=== PATIENT | male | born 1930 | race Caucasian/White ===

== ENCOUNTER 2017-05-28 18:18 | Inpatient (IN) ==
[2017-05-28] MEDS ORDERED: Pantoprazole 40 MG VIAL IVP ONE ×3 (18:25→19:00)
--- NOTE | 2017-05-28 18:42 | Emergency Department Note ---
Disposition Clinical Impression: Upper GI bleed Disposition: Admitted As Inpatient Condition: Good Referrals: Haresh Salmon MD [Primary Care Provider] - Time of Disposition: 20:22 General Adult HPI - General Stated complaint: GI bleed Time Seen by Provider: 05/28/17 18:25 Source: patient, family, EMS Limitations: no limitations Nursing Notes Reviewed: Yes Vital Signs Reviewed: Yes - History of Present Illness HPI Narrative: Mr. Boswell is a very pleasant 87-year-old gentleman with a past medical history of hypertension, CKD, congestive heart failure and carotid artery stenosis who presents to the [facility] emergency department with a chief complaint of melena. He reports that he had a bout of dark colored stool this morning. He is a patient at the [facility] and was seen prior to arrival at the urgent care. Their workup there included a CBC which showed a H&H of 10.7 and 32.6 along with BUN of 60 and a creatinine of 2.08. patient was found to be occult blood positive at that time. Patient was given 40 mg IV Protonix. IV access was obtained and patient was subsequently transferred via ambulance to our emergency department for further evaluation. On arrival, he denies any other symptomatology such as abdominal pain, chest pain, shortness breath, palpitations, nausea, vomiting. He does state that he felt mildly lightheaded after his bloody bowel movement early this morning. He denies any [id number] NSAID abuse. No tobacco or alcohol abuse. His remote history of a GI bleed roughly 38 years ago. No history of recent endoscopies. No other complaints at this time. Pain Scale: 0 - Related Data Home Medications Medication Instructions Recorded Confirmed Amlodipine Besylate [Amlodipine 10 mg PO DAILY 05/28/17 05/28/17 Besylate] Clopidogrel [Plavix] 75 mg PO DAILY 05/28/17 05/28/17 Furosemide [Lasix] 20 mg PO DAILY 05/28/17 05/28/17 Lisinopril [Zestril] 20 mg PO DAILY 05/28/17 05/28/17 Tamsulosin [Flomax] 0.4 mg PO DAILY 05/28/17 05/28/17 Allergies Allergy/AdvReac Type Severity Reaction Status Date / Time Penicillins AdvReac Hives Verified 05/28/17 19:59 Review of Systems: Constitutional: No fever Vision: No blurred vision ENT: No rhinorrhea Respiratory: No cough Cardiovascular: No chest pain Allergic: No allergies : No blood in urine GI: See history of present illness Hematologic: No bruising Dermatologic: No skin rash Musculoskeletal: No pain in the extremities Neuro: No numbness of the extremities Past Medical History - Past Medical History Medical history: Reports: COPD, hypertension Psychiatric history: Reports: no psych history - Social History Smoking Status: Former smoker Alcohol use: Reports: none Drug use: Reports: none Physical Exam CONSTITUTIONAL: Alert and oriented X3 in no apparent distress HEAD: Normocephalic; atraumatic. EYES: Ocular movements grossly intact Oropharynx: pink/moist RESP: NRD without use of accessory musculature, CTA b/l with no wheezes/rales/ rhonchi CARD: Regular rhythm, without murmurs, rubs, or gallop ABD: grossly normal, soft, non-tender, no guarding/distention/rigidity SKIN: normal appearance, no pallor/diaphoresis,mottling,jaundice,cyanosis EXT: PT pulses 2+ and symmetrical; no lateralizing edema; no other lesions seen PSYCH: appropriate mood/affect - General Limitations: no limitations General appearance: alert, in no apparent distress Course Course Narrative: Patient was seen and examined at bedside upon arrival. Report was given per EMS. Vital signs were reviewed and were unremarkable. Workup performed at the [facility] urgent care was reviewed. Physical examination was unremarkable. Patient was found to be Hemoccult positive. There is no bright red blood or black colored stool within the rectal vault. Patient was given another 40 mg of IV Protonix. 500 mL bolus was given of IVF. Second IV was inserted. Repeat H&H, coags, type and screen and troponin were ordered. 12 lead EKG was ordered as well. Patient was made nothing by mouth. Patient appears comfortable and nontoxic at this time. 2010: 12-lead EKG demonstrates mild ST elevation in the inferior leads that were changed from previous. Troponin was negative and patient has no chest pain at this time. Repeat H&H shows mild drop in his glove and to 9.8. GI was consulted and case was discussed with Dr. Lundberg who will see patient tomorrow morning and had no further recommendations at this time. Hospitalist was then consulted and discussed case with Dr. Asif notes that the patient for hospital admission. Disposition was discussed with patient who understands and agrees to plan. Vital Signs Temperature 98.6 F 05/28/17 18:19 Pulse Rate 96 05/28/17 18:19 Respiratory Rate 18 05/28/17 18:19 Blood Pressure 135/88 05/28/17 18:19 O2 Sat by Pulse Oximetry 100 05/28/17 18:19 Temperature 98.6 F 05/28/17 18:19 Pulse Rate 97 05/28/17 20:49 Respiratory Rate 16 05/28/17 20:49 Blood Pressure 126/80 05/28/17 20:49 O2 Sat by Pulse Oximetry 99 05/28/17 20:49 Oxygen Delivery Oxygen Delivery Room Air Medical Decision Making - Medical Records Medical records reviewed: Yes I reviewed the patient's medical records. - Lab Data Lab results reviewed: Yes I reviewed the patient's lab results. Result diagrams: 05/28/17 18:43 Lab Results 05/28/17 05/28/17 05/28/17 Range/Units 18:40 18:40 18:43 Hgb 9.8 L (12.9-16.9) g/dL Hct 28.3 L (37.5-50.1) % PT 15.9 H (9.4-12.1) Seconds INR 1.5 APTT 26.8 (26.0-36.0) Seconds Troponin I (< 0.04) ng/mL Blood Type O POSITIVE Antibody Screen POSITIVE 05/28/17 Range/Units 18:43 Hgb (12.9-16.9) g/dL Hct (37.5-50.1) % PT (9.4-12.1) Seconds INR APTT (26.0-36.0) Seconds Troponin I < 0.03 (< 0.04) ng/mL Blood Type Antibody Screen - EKG Data EKG #1 EKG attestation: Yes I reviewed and interpreted this EKG. EKG results narrative: 05/28/17 1833: Heart rate 96, QRS 111, QTC 398. There is mild ST elevation noted inferior leads as well as ST depression seen in V4. These elevations and depressions were seen at a decreased distance performed on previous at the [facility] prior to arrival on 05/28/17 at 1715.
[2017-05-28 18:55] LABS: Hematocrit 28.3 % (37.5-50.1); Hemoglobin 9.8 g/dL (12.9-16.9)
[2017-05-28 19:00] LABS: INR 1.5; Prothrombin Time 15.9 Seconds (9.4-12.1)
[2017-05-28 19:03] LABS: Activated Partial Thrombo Time 26.8 Seconds (26.0-36.0)
[2017-05-28] MEDS ORDERED: 0.9 % Sodium Chloride 500 ML IVC ONE (19:46)
--- NOTE | 2017-05-28 21:35 | Emergency Department Note ---
Disposition Clinical Impression: Upper GI bleed Disposition: Admitted As Inpatient Condition: Good Referrals: Haresh Salmon MD [Primary Care Provider] - General Adult HPI - General Chief complaint: ED GI Bleed Stated complaint: GI bleed Time Seen by Provider: 05/28/17 18:25 Source: patient, family, EMS Limitations: no limitations Nursing Notes Reviewed: Yes Vital Signs Reviewed: Yes - History of Present Illness Pain Scale: 0 - Related Data Home Medications Medication Instructions Recorded Confirmed Amlodipine Besylate [Amlodipine 10 mg PO DAILY 05/28/17 05/28/17 Besylate] Clopidogrel [Plavix] 75 mg PO DAILY 05/28/17 05/28/17 Furosemide [Lasix] 20 mg PO DAILY 05/28/17 05/28/17 Lisinopril [Zestril] 20 mg PO DAILY 05/28/17 05/28/17 Tamsulosin [Flomax] 0.4 mg PO DAILY 05/28/17 05/28/17 Allergies Allergy/AdvReac Type Severity Reaction Status Date / Time Penicillins AdvReac Hives Verified 05/28/17 19:59 Past Medical History - Past Medical History Medical history: Reports: COPD, hypertension Psychiatric history: Reports: no psych history - Social History Smoking Status: Former smoker Alcohol use: Reports: none Drug use: Reports: none Physical Exam - General Limitations: no limitations General appearance: alert, in no apparent distress Course Vital Signs Temperature 98.6 F 05/28/17 18:19 Pulse Rate 96 05/28/17 18:19 Respiratory Rate 18 05/28/17 18:19 Blood Pressure 135/88 05/28/17 18:19 O2 Sat by Pulse Oximetry 100 05/28/17 18:19 Temperature 98.6 F 05/28/17 18:19 Pulse Rate 97 05/28/17 20:49 Respiratory Rate 16 05/28/17 20:49 Blood Pressure 126/80 05/28/17 20:49 O2 Sat by Pulse Oximetry 99 05/28/17 20:49 Oxygen Delivery Oxygen Delivery Room Air Medical Decision Making - Lab Data Result diagrams: 05/28/17 18:43 Lab Results 05/28/17 05/28/17 05/28/17 Range/Units 18:40 18:40 18:43 Hgb 9.8 L (12.9-16.9) g/dL Hct 28.3 L (37.5-50.1) % PT 15.9 H (9.4-12.1) Seconds INR 1.5 APTT 26.8 (26.0-36.0) Seconds Troponin I (< 0.04) ng/mL Blood Type O POSITIVE Antibody Screen POSITIVE 05/28/17 Range/Units 18:43 Hgb (12.9-16.9) g/dL Hct (37.5-50.1) % PT (9.4-12.1) Seconds INR APTT (26.0-36.0) Seconds Troponin I < 0.03 (< 0.04) ng/mL Blood Type Antibody Screen Attestation Statement - Attestation Attestation: I, Alfred Meadows, examined this patient and my medical decision-making was reviewed with the [employer] CONSULTANT/PA/Advanced Practice Nurse/Resident Physician. I agree with the documented findings, disposition and treatment plan as described except to the extent set forth below. 87-year-old male presents emergency Department with concerns of acute onset GI bleeding. Patient was initially evaluated at the [facility] who found mild anemia, melanotic stool. Patient is symptomatic with his anemia, lightheaded, short of breath with exertion. He does become nauseated with exertion. Patient denies chest pain or palpitations. On initial evaluation the emergency department the patient has an EKG which has mild ST elevation in lead [address] depression of the V4 however patient has no chest pain at this time, his symptoms have been increasing over the past few days and he has a negative initial troponin. Patient denies other recent trauma. He will be admitted to the hospitalist for further care and evaluation. The resident, Dr. Carrillo spoke with the bowling or skating front desk clerk, Dr. Lundberg, regarding the patient's case and presentation who felt comfortable with seeing him while he is in the hospital here. Patient does not have any further episodes of melanotic stool. Vital signs stable prior to admission to the hospital.
--- NOTE | 2017-05-28 22:07 | Internal Med History&Physical ---
<Tacos Calvo - Last Filed: 05/28/17 23:07> Date of Encounter: 05/28/17 Time of Encounter: 22:05 Internal Medicine - H&P: HPI Chief complaint: Melena Admitted From: Home Plans for Post Hospital Care: Home History of present illness: Mr. Boswell is an 87-year-old male with PMH of hypertension, CAD, CHF, carotid artery stenosis. Presented to [facility] on the evening of 05/28/17 with a chief complaint of melena. Patient had a bout of dark colored stool this morning. [place] a patient [place] the [place] Was seen prior to arrival at urgent care. Labs at urgent care demonstrated a hemoglobin of 10.7, BUN of 60, creatinine 2.8. He was occult blood positive at that time. He was given 40 mg IV Protonix. IV access was obtained, patient was transferred to [facility] emergency department. Denied having any symptoms on arrival, such as chest pain, abdominal pain, shortness of breath, palpations, nausea, or vomiting. Reportedly felt lightheaded after his bloody bowel movement this morning. Denies using niul-jdy-kienlhy NSAIDs. Plavix 75 mg by mouth daily is listed in patients home medications. No tobacco or alcohol abuse. Remote history of GI bleed approximately 38 years ago. No recent endoscopies. Vital signs were within normal limits on arrival. No bright red blood or black colored stool within his rectal vault. Patient was given an additional dose of 40 mg IV Protonix. Also given 500 mL bolus of IV fluids. Repeat hemoglobin and hematocrit coagulations, type and screen all obtained. Patient was made nothing by mouth. EKG demonstrated mild ST elevation in the inferior leads that were changed from previous. Troponin was negative. Patient denies having any chest pain. Repeat H&H demonstrated a hemoglobin of 9.8. GI has been consulted; Dr. Lundberg has been made aware. Will see patient tomorrow morning. Patient was seen and examined at bedside this evening. Patient denies having any dizziness, lightheadedness, chest pain, or shortness of breath. Patient is resting comfortably in bed and has no complaints at this time. Past Med Surg Social Fam HX - Past Medical History Medical history: COPD, hypertension Psychiatric history: no psych history - Social History Smoking Status: Former smoker Alcohol use: none Drug use: none Internal Medicine - H&P: Meds Amlodipine Besylate [Amlodipine Besylate] 10 mg PO DAILY 05/28/17 [History] Clopidogrel [Plavix] 75 mg PO DAILY 05/28/17 [History] Furosemide [Lasix] 20 mg PO DAILY 05/28/17 [History] Lisinopril [Zestril] 20 mg PO DAILY 05/28/17 [History] Tamsulosin [Flomax] 0.4 mg PO DAILY 05/28/17 [History] 3 Allergy/AdvReac Type Severity Reaction Status Date / Time Penicillins AdvReac Hives Verified 05/28/17 19:59 All Systems PM: A 10-system review of systems was performed and is negative for pertinent findings except as documented above in the HPI. - Constitutional Constitutional: no chills, no fever(s) - EENT Ears: no tinnitus - Cardiovascular Cardiovascular ROS IM: no chest pain, no diaphoresis, no dyspnea, no lightheadedness, no palpitations, no syncope - Respiratory Respiratory: no cough, no dyspnea, no wheezing, no excessive phlegm production - Gastrointestinal Gastrointestinal: no abdominal pain, no diarrhea, no hematemesis, no hematochezia, no vomiting - Constitutional Vitals: Temp Pulse Resp BP Pulse Ox 98.6 F 96 18 133/98 98 05/28/17 18:19 05/28/17 21:33 05/28/17 21:33 05/28/17 21:33 05/28/17 21:33 General appearance: Present: A&O X 3, answers questions appropriately - Head Head exam: Present: atraumatic, normocephalic - Eye Eye exam: Present: PERRL, conjuntiva pink, sclera anicteric Pupils: Present: PERRL - Neck Neck exam general surgery: Present: supple, trachea midline. Absent: lymphadenopathy - Respiratory Respiratory exam: Present: CTAB. Absent: accessory muscle use, rales, rhonchi, wheezes - Cardiovascular Cardiovascular exam: Present: RRR, +S1, +S2. Absent: diastolic murmur, gallop, rubs, systolic murmur - GI/Abdominal GI/Abdominal exam: Present: normal bowel sounds, soft, no peritoneal signs. Absent: distended, tenderness - Extremities Exam Extremities exam: Present: pedal edema, warm, radial pulses palpable and symmetrical. Absent: calf tenderness, cyanotic - Neurological Exam Neurological exam: Present: oriented X3, no focal deficits. Absent: pronater drift, facial droop, speech deficit - Skin Skin exam: Present: dry, intact Internal Med - H&P Results - Labs CBC & Chem 7: 05/28/17 18:43 - Assessment and plan (1) GI bleed Current Visit: Yes Status: Acute Assessment and plan: Patient presented after an episode of melena earlier in the day - Urgent care laboratory analysis demonstrated a hemoglobin of 10.7 - Patient was Hemoccult positive - Asymptomatic at this time - In the emergency department, patient was given 3 one-time doses of Protonix, 2 of them were 40 mg and 1 was 80 mg - Patient was also given bolus of normal saline - Currently NPO - GI has been consulted; will see patient tomorrow morning - Hemoglobin 3 - IV protonix Qualifiers: Qualified Code(s): K92.2 - Gastrointestinal hemorrhage, unspecified (2) CHF (congestive heart failure) Current Visit: Yes Status: Acute Assessment and plan: Patient has a known history of CHF Last echocardiogram performed on 09/08/16 of The following: - Ejection fraction 40% - Mild left ventricular systolic dysfunction with regional variations - Mild left ventricular diastolic dysfunction - Mild mitral regurgitation - Mild tricuspid regurgitation - Mild-moderate pulmonic regurgitation - Mild-moderate pulmonary hypertension - Patient takes Lasix 20 mg by mouth daily at home - Resume Qualifiers: Qualified Code(s): I50.9 - Heart failure, unspecified (3) BETSY (acute kidney injury) Current Visit: Yes Status: Acute Assessment and plan: Patient presented with elevated BUN and Creatinine. - Admits to having history of kidney disease. - Possibly secondary to GI bleed - Hold IVF for now due to underlying CHF - Repeat AM labs - Avoid nephrotoxic agents (4) Hypertension Current Visit: Yes Status: Acute Assessment and plan: - Patients vital signs were within normal limits on presentation - Known history of hypertension - Takes lisinopril and amlodipine at home - Resume home meds Qualifiers: Qualified Code(s): I10 - Essential (primary) hypertension (5) CAD (coronary artery disease) Current Visit: Yes Status: Acute Assessment and plan: - Patient takes 75 mg Plavix by mouth daily - Hold for now due to concern of GI bleed Qualifiers: Qualified Code(s): I25.10 - Atherosclerotic heart disease of [place] coronary artery without angina pectoris - Time Spent With Patient Total time spent is greater than 50% in coordination of care (as documented) at patient's floor/unit and/or counseling patient: <Denzel Alejandro - Last Filed: 05/29/17 00:15> Date of Encounter: 05/29/17 Internal Medicine - H&P: HPI History of present illness: Mr. Boswell is a 87 year old male All Systems PM: A 10-system review of systems was performed and is negative for pertinent findings except as documented above in the HPI. - Constitutional Vitals: Temp Pulse Resp BP Pulse Ox 97.8 F 93 17 136/72 97 05/28/17 22:20 05/28/17 22:20 05/28/17 22:20 05/28/17 22:20 05/28/17 22:20 Internal Med - H&P Results - Labs CBC & Chem 7: 05/28/17 18:43 - Attending Attestation Patient was seen and examined at bedside with his daughter and son Plan of care discussed with the resident physician, the patient, and his family members. 87-year-old male with medical history of chronic kidney disease at least stage III, Carotid stenosis, combined CHF, hypertension, history of peptic ulcer disease. The patient presented with 2 episodes of melena stools. Of acute drop of hemoglobin and dizziness. The patient was transferred to [facility] from the [place] for evaluation for GI bleed. The patient endorsed a history of GI bleed greater than 30 years ago necessitating multiple blood transfusions. There is also worsening of his kidney disease possibly due to the GI bleed. Physical examination is unremarkable. His hemoglobin is slightly decreasing, 9.8 in this admission, hemoglobin 2 years ago was 15. He will be admitted and managed for acute blood loss anemia secondary to suspected GI bleed, agree with Protonix IV, sucralfate by mouth, endoscopy by GI , hold IV fluids due to CHF status, continue home medications. Nothing by mouth from tonight. Hold Plavix for now Rest of details as in the resident physician's documentation. - Assessment and plan (1) Acute blood loss anemia Current Visit: Yes Status: Acute (2) Acute on chronic kidney failure Current Visit: Yes Status: Acute Qualifiers: Acute renal failure type: unspecified Chronic kidney disease stage: stage 3 (moderate) Qualified Code(s): N17.9 - Acute kidney failure, unspecified; N18.3 - Chronic kidney disease, stage 3 (moderate); N18.3 - Chronic kidney disease, stage 3 (moderate) (3) CAD (coronary artery disease) Current Visit: Yes Status: Acute Qualifiers: Qualified Code(s): I25.10 - Atherosclerotic heart disease of [place] coronary artery without angina pectoris (4) CHF (congestive heart failure) Current Visit: Yes Status: Acute Qualifiers: Qualified Code(s): I50.9 - Heart failure, unspecified (5) GI bleed Current Visit: Yes Status: Acute Qualifiers: Qualified Code(s): K92.2 - Gastrointestinal hemorrhage, unspecified (6) Hypertension Current Visit: Yes Status: Acute Qualifiers: Qualified Code(s): I10 - Essential (primary) hypertension - Time Spent With Patient Total time spent is greater than 50% in coordination of care (as documented) at patient's floor/unit and/or counseling patient:
[2017-05-28] MEDS ORDERED: Naloxone 0.4 MG/ML INJ IVP PRN (23:12)
[2017-05-29] MEDS: Pantoprazole 40 MG VIAL IVP SCH ×2 (05:26→18:34)
[2017-05-29 06:15] LABS: Basophils % 0.3 %; Eosinophils # 0.4 K/mcL (0.0-0.6); Eosinophils % 4.4 %; Hematocrit 25.8 % (37.5-50.1); Hemoglobin 8.5 g/dL (12.9-16.9); Immature Granulocytes % 0.6 % (0-4); Lymphocytes # 1.2 K/mcL (0.6-4.6); Lymphocytes % 14.8 %; Mean Corpuscular HGB Conc 32.9 g/dL (31.6-35.5); Mean Corpuscular Hemoglobin 29.6 pg (28.0-33.3); Mean Corpuscular Volume 89.9 fL (83.0-100.0); Mean Platelet Volume 10.6 fL (9.4-12.4); Monocytes # 0.7 K/mcL (0.0-1.3); Monocytes % 9.3 %; Neutrophils # 5.6 K/mcL (1.6-8.9); Platelet Count 199 K/mcL (140-400); Red Blood Count 2.87 M/mcL (4.19-5.50); Red Cell Distribution Width 13.3 % (11.5-14.5); Segmented Neutrophils % 70.6 %
[2017-05-29 06:31] LABS: Calcium 8.3 mg/dL (8.6-10.3); Potassium 4.1 mEq/L (3.5-5.1)
[2017-05-29] MEDS ORDERED: Lidocaine -MPF 2% 2 ML VIAL ONE (07:11)
[2017-05-29] MEDS ORDERED: *HR* Succinylcholine 200 MG/10 ML VIAL IVP ONE (07:11)
[2017-05-29] MEDS ORDERED: *HR* Propofol 200 MG/20 ML VIAL IVP ONE (07:12)
--- NOTE | 2017-05-29 08:32 | Anesthesia Evaluation PreOp ---
Date of Encounter: 05/29/17 Time of Encounter: 08:30 - Past History Planned Operation: EGD Cardiac History: CHF, HTN, Other (Carotid stenosis) Pulmonary History: COPD MASTER OCEAN History: Denies Any Significant HX Other Medical History: Renal (BETSY), Other (PUD) Anesthesia History: No Prior Anesthetic Complications, Past Anesthesia Alcohol Use: none Drug use: none Medications and Allergies Amlodipine Besylate [Amlodipine Besylate] 10 mg PO DAILY 05/28/17 [History] Clopidogrel [Plavix] 75 mg PO DAILY 05/28/17 [History] Furosemide [Lasix] 20 mg PO DAILY 05/28/17 [History] Lisinopril [Zestril] 20 mg PO DAILY 05/28/17 [History] Tamsulosin [Flomax] 0.4 mg PO DAILY 05/28/17 [History] 3 Allergy/AdvReac Type Severity Reaction Status Date / Time Penicillins AdvReac Hives Verified 05/28/17 19:59 - Meds/Allergy Pre-op Review Medications Reviewed: Yes Allergies Reviewed: Yes Beta Blockers on Current Med List: No Anesthesia Results - Labs 05/29/17 05:37 05/29/17 05:37 Date of Study: 09/08/2016 Date: 1930 Ht: Indications: Hypertension, Murmur Impressions: LVEF 40-45%. Mild LV systolic dysfunction with regional variations (see Diagram below). Mild left ventricular diastolic dysfunction. Normal right ventricular structure and function. Mild mitral regurgitation. Mild tricuspid regurgitation. Mild-moderate pulmonic regurgitation. Mild-moderate pulmonary hypertension. Anesthesia Exam Vital Signs/O2 Sat, Most Current Temp Pulse Resp BP Pulse Ox 97.5 F L 90 18 142/81 98 05/29/17 07:32 05/29/17 07:32 05/29/17 07:32 05/29/17 07:32 05/29/17 07:32 NPO (# of Hours): > 8 hrs Pain Scale: 0 Pain Scale Used: Numeric (1 - 10) - HEENT Pupil (Motor): Pupils equal, EOMI Mallampati: III Teeth: Poor dentition Oral Opening: Greater than 3 - MASTER OCEAN LOC: Oriented MASTER OCEAN Motor: Normal RUE, Normal LUE, Normal RLE, Normal LLE, Normal Face MASTER OCEAN Sensory: Normal: RUE, LUE, RLE, LLE, Face - Cardiac Rhythm: Regular Murmur: None JVD: No Carotid Bruit: No - Pulmonary Breath Sounds: bilateral Clear Respiratory Effort: Symmetrical Anesthesia Assess/Plan ASA Score: 3 Modified Mone Scale for Level of Consciousness: Cooperative, oriented, and tranquil Anesthetic Plan: MAC Autologous Blood: Yes Monitoring Plan: Standard Monitors Recovery Plan: Other
[2017-05-29] MEDS ORDERED: Tetracaine/Benzocaine/Butamben 200MG/SPRAY (100SPY/BOT) MM ONE (08:38)
[2017-05-29] MEDS ORDERED: SODIUM CHLORIDE/NAHCO3/KCL/PEG 4,000 ML SOLN.RECON PO ONE (08:54)
[2017-05-29] MEDS: Lisinopril 20 MG TABLET PO SCH (10:22)
[2017-05-29] MEDS: Furosemide 20 MG TABLET PO SCH (10:22)
[2017-05-29] MEDS: amLODIPine 5 MG TABLET PO SCH (10:22)
--- NOTE | 2017-05-29 12:58 | Gastroenterology Consult Note ---
<Richard Mckeon - Last Filed: 05/29/17 12:55> Date of Encounter: 05/29/17 Time of Encounter: 10:55 - Assessment and plan (1) GI bleed Status: Acute Assessment and plan: Pt with melena. EGD completed this AM with benign esophageal stenosis, 5 cm hiatal hernia, single gastric polyp, duodenal deformity. Plan for colonoscopy tomorrow. Clear liquid diet today, no red or purple. NPO at midnight. If unable tolerate NuLytely please use MiraLAX prep. If not clear by 6 AM, give 2 tap water enemas. Qualifiers: Qualified Code(s): K92.2 - Gastrointestinal hemorrhage, unspecified (2) Anemia Status: Acute Assessment and plan: Hgb on admission here was 9.8 and this AM Hgb 8.5. Continue to monitor CBC and transfuse PRBC as needed. Qualifiers: Qualified Code(s): D64.9 - Anemia, unspecified (3) Family history of colon cancer Status: Acute Assessment and plan: Family history of colon cancer in father, uncle, and grandfather. - Time Spent With Patient Total time spent is greater than 50% in coordination of care (as documented) at patient's floor/unit and/or counseling patient: GI History of Present Illness - Data of Consult Patient: new to practice Requesting Physician: Eleno Asif MD - Consult Narrative Reason for consult: Blood in stool History of present illness: Mr. Boswell is a 87 year old male with PMHx of HTN, CAD, CHF, who presented to the ED with complaint of melena. He was seen at urgent care prior to admission here. Labs at urgent care demonstrated a hemoglobin of 10.7, BUN of 60 , creatinine 2.8. He was occult blood positive at that time. He was given 40 mg IV Protonix and transferred to [facility] ED. He denies fever, chills, chest pain, abdominal pain, nausea, or vomiting. Remote history of GI bleed approximately 38 years ago. Hgb on admission here was 9.8 and this AM Hgb 8.5. Procedures: None NSAIDs: None Anticoagulation: Plavix Past Med Surg Social Fam HX - Past Medical History Medical history: COPD, hypertension Psychiatric history: no psych history - Social History Smoking Status: Former smoker Smokeless Tobacco Status: No Alcohol use: none Drug use: none - Gastrointestinal Gastrointestinal: Present: as per HPI - Constitutional Constitutional: as per HPI - EENT Eyes: as per HPI Ears: Present: as per HPI Nose, mouth and throat: Present: as per HPI - Cardiovascular Cardiovascular ROS: Present: as per HPI - Respiratory Respiratory IM: Present: as per HPI - Genitourinary Genitourinary: Absent: change in color, Urinary frequency - Neurological ROS Neurological GI: Present: as per HPI - Hematologic/Lymphatic Hematologic/Lymphatic pediatric: Present: as per HPI - Musculoskeletal Musculoskeletal ROS GI: Present: as per HPI - Integumentary Integumentary GI: Present: as per HPI - Psychiatric ROS Psychiatric GI: Present: as per HPI - Endocrine Endocrine IM: Present: as per HPI - Constitutional Vitals: Temp Pulse Resp BP Pulse Ox 97.3 F L 87 18 127/73 100 05/29/17 10:37 05/29/17 10:37 05/29/17 10:37 05/29/17 10:37 05/29/17 10:37 General appearance: Present: cooperative, A&O X 3, no acute distress, answers questions appropriately - Head Head exam: Present: atraumatic, normocephalic - Eye Eye exam: Present: normal appearance, sclera anicteric - ENT ENT exam: Present: mucous membranes moist - Neck Neck exam general surgery: Present: normal inspection, trachea midline - Respiratory Respiratory exam: Present: CTAB. Absent: rales, rhonchi - Cardiovascular Cardiovascular exam: Present: RRR, +S1, +S2 - GI/Abdominal GI/Abdominal exam: Present: soft, no peritoneal signs. Absent: distended, firm , guarding, tenderness - Rectal Rectal exam: Present: deferred - Extremities Exam Extremities exam: Present: warm - Neurological Exam Neurological exam: Present: no focal deficits - Psychiatric Psychiatric exam: Present: normal affect, normal mood - Skin Skin exam: Present: dry, intact, normal color, warm Results - Labs CBC & Chem 7: 05/29/17 05:37 05/29/17 05:37 Labs: Last Result Calcium 8.3 mg/dL (8.6-10.3) L 05/29/17 05:37 Troponin I < 0.03 ng/mL (< 0.04) 05/28/17 18:43 Entire Visit Hgb 8.5 g/dL (12.9-16.9) L 05/29/17 05:37 Hct 25.8 % (37.5-50.1) L 05/29/17 05:37 PT 15.9 Seconds (9.4-12.1) H 05/28/17 18:40 - ABG ABG results: PT/INR, D-dimer PT 15.9 Seconds (9.4-12.1) H 05/28/17 18:40 Consult Discharge Plan - Plan Additional Instructions: Follow up with your PCP in 7-10 days after your discharge Follow up with [facility] as an outpatient Take all your medications as prescribed If you develop fevers, chills, abdominal pain, nausea/vomiting, chest pain, difficulty breathing, shortness of breath, or your symptoms worsen, contact your PCP or visit the ED Referrals: Ian Benson MD [Partnered Physician] - Haresh Salmon MD [Primary Care Provider] - Prescriptions: Cyanocobalamin (B-12) [Vitamin B12] 1,000 mcg PO DAILY #30 tablet Pantoprazole Sodium [Protonix] 40 mg PO DAILY #30 tablet.dr <Ian Benson - Last Filed: 06/03/17 06:11> Date of Encounter: 05/29/17 - Time Spent With Patient Total time spent is greater than 50% in coordination of care (as documented) at patient's floor/unit and/or counseling patient: GI History of Present Illness - Data of Consult Requesting Physician: Eleno Asif MD - Consult Narrative History of present illness: Mr. Boswell is a 87 year old male - Constitutional Vitals: Temp Pulse Resp BP Pulse Ox 97.4 F L 82 16 151/54 98 05/31/17 09:30 05/31/17 09:30 05/31/17 09:30 05/31/17 09:30 05/31/17 09:30 Results - Labs CBC & Chem 7: 05/31/17 05:48 05/31/17 05:48 Labs: Last Result Calcium 8.2 mg/dL (8.6-10.3) L 05/31/17 05:48 Iron 53 mcg/dL (65-175) L 05/29/17 12:25 % Saturation 19 % (20-55) L 05/29/17 12:25 Transferrin 199 mg/dL (203-362) L 05/29/17 12:25 Troponin I < 0.03 ng/mL (< 0.04) 05/28/17 18:43 Vitamin B12 156 pg/mL (250-1100) L 05/29/17 12:25 Folate 7.4 ng/mL (3.0-16.0) 05/29/17 12:25 Entire Visit Hgb 9.1 g/dL (12.9-16.9) L 05/31/17 05:48 Hct 27.5 % (37.5-50.1) L 05/31/17 05:48 PT 15.9 Seconds (9.4-12.1) H 05/28/17 18:40 Folate 7.4 ng/mL (3.0-16.0) 05/29/17 12:25 - ABG ABG results: PT/INR, D-dimer PT 15.9 Seconds (9.4-12.1) H 05/28/17 18:40 - 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 Has at least two first degree relatives (dad and brother) with colon cancer. Patient has refused colonoscopy in past. Plan EGD and colonoscopy this admission. Transfuse as needed. I have personally performed a face to face evaluation on this patient. I have reviewed and agree with the care plan. History and Exam by me shows:
[2017-05-29 13:06] LABS: Hematocrit 26.2 % (37.5-50.1); Hemoglobin 8.8 g/dL (12.9-16.9)
[2017-05-29 13:26] LABS: % Iron Saturation 19 % (20-55); Iron 53 mcg/dL (65-175); Transferrin 199 mg/dL (203-362)
[2017-05-29 13:43] LABS: Folate 7.4 ng/mL (3.0-16.0)
[2017-05-29] MEDS ORDERED: Cyanocobalamin (B-12) 1,000 MCG/ML VIAL SQ ONE (15:08)
--- NOTE | 2017-05-29 15:17 | Electrocardiograph Report ---
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
--- NOTE | 2017-05-29 15:33 | Internal Med Progress Note ---
<Keira Atkinson - Last Filed: 05/29/17 15:45> Date of Encounter: 05/29/17 Time of Encounter: 10:30 - Assessment and plan (1) Acute blood loss anemia Current Visit: Yes Status: Acute Assessment and plan: -No signs of bleeding on EGD today -GI plans to do colonoscopy tomorrow -Continue to monitor for signs of active bleeding -Follow H/H -Transfuse PRBCs for hemoglobin less than 7 (2) GI bleed Current Visit: Yes Status: Acute Assessment and plan: -hemoglobin today of 8.5, down from yesterday's hemoglobin of 9.8--suspect this is a dilutional effect from IV fluids -EGD this morning showed one sessile gastric polyp that showed no stigmata of recent bleed -GI following -Plan for colonoscopy tomorrow -pRBC transfusion for hemoglobin <7 -Significant family history of colon cancer in his father, uncle, and grandfather -IV Protonix 40 mg IV Q12H Qualifiers: GI bleed type/associated pathology: melena Qualified Code(s): K92.1 - Melena (3) Acute on chronic kidney failure Current Visit: Yes Status: Acute Assessment and plan: -CKD III with baseline serum creatinine approximately 1.5 -Acute kidney injury may be d/t GI bleed -Serum creatinine this morning of 1.8, previously 2.08 on urgent care labs -Avoid nephrotoxins and use renal dosing -Follow serum creatinine, if creatinine rises will consider holding his lisinopril -Gentle IV fluid hydration Qualifiers: Acute renal failure type: unspecified Chronic kidney disease stage: stage 3 (moderate) Qualified Code(s): N17.9 - Acute kidney failure, unspecified; N18.3 - Chronic kidney disease, stage 3 (moderate); N18.3 - Chronic kidney disease, stage 3 (moderate) (4) CHF (congestive heart failure) Current Visit: Yes Status: Chronic Assessment and plan: -Last echocardiogram performed on 09/08/16 showed EF 40%, mild-moderate pulmonary HTN, mild MR and TR, mild-mod pulmonic regurgitation -Continue home dose of Lasix 20 mg -No rales auscultated on exam. No lower extremity edema Qualifiers: Heart failure type: unspecified Heart failure chronicity: unspecified Qualified Code(s): I50.9 - Heart failure, unspecified (5) Hypertension Current Visit: Yes Status: Acute Assessment and plan: - Vital signs stable - Resume home meds lisinopril and amlodipine Qualifiers: Hypertension type: essential hypertension Qualified Code(s): I10 - Essential (primary) hypertension (6) CAD (coronary artery disease) Current Visit: Yes Status: Acute Assessment and plan: - Hold Plavix due to concern of GI bleed -Continue secured entrance monitor Qualifiers: Coronary Disease-Associated Artery/Lesion type: unspecified vessel or lesion type [place] vs. transplanted heart: [place] heart Associated angina: angina presence unspecified Qualified Code(s): I25.10 - Atherosclerotic heart disease of [place] coronary artery without angina pectoris (7) DVT prophylaxis Current Visit: Yes Status: Acute Assessment and plan: EPCDs - Time Spent With Patient Total time spent is greater than 50% in coordination of care (as documented) at patient's floor/unit and/or counseling patient: - Subjective Interval history: Pt slept well last night. Daughter and son present in room. He has no complaints today. 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 Denies any bowel movements today. Reports he has shortness of breath at baseline , no change. - Constitutional Vitals: Temp Pulse Resp BP Pulse Ox 97.3 F L 87 18 127/73 100 05/29/17 10:37 05/29/17 10:37 05/29/17 10:37 05/29/17 10:37 05/29/17 10:37 General appearance: Present: A&O X 3, answers questions appropriately - Other Additional findings: General: AAOx3, No acute distress, resting comfortably in bed HEENT: PERRL/ EOMI, moist mucus membranes, non traumatic, normocephalic Neck: Supple, trachea midline Cardio: RRR, +S1/S2, no edema Pulm: CTAB, no wheezing, rhonchi, rales. Normal respiratory effort. Abdomen: soft, nontender, BS+, no rebound, rigidity, guarding, distention Extremities: capillary refill WNL, no calf tenderness, no cyanosis, clubbing, splinter hemorrhages Back: Nontender throughout Neuro: AAOx3, no focal neurological defecit, mentation intact CN II-XII intact grossly Psych: Appropriate mood and affect. Answers questions appropriately. Cooperative with exam Internal Medicine: Result - Labs CBC & Chem 7: 05/29/17 12:25 05/29/17 05:37 Labs: Short CBC 05/29/17 05/29/17 Range/Units 05:37 12:25 WBC 8.0 (4.3-11.1) K/mcL Hgb 8.5 L 8.8 L (12.9-16.9) g/dL Hct 25.8 L 26.2 L (37.5-50.1) % Plt Count 199 (140-400) K/mcL Neutrophils # 5.6 (1.6-8.9) K/mcL BMP 05/29/17 05:37 Sodium 138 Potassium 4.1 Chloride 107 Carbon Dioxide 23 BUN 66 H Creatinine 1.80 H Glucose 103 Calcium 8.3 L - ABG Interpretation ABG results: PT/INR, D-dimer PT 15.9 Seconds (9.4-12.1) H 05/28/17 18:40 Consult Discharge Plan - Plan Referrals: Haresh Salmon MD [Primary Care Provider] - <Liliya Hairston - Last Filed: 05/29/17 16:36> Date of Encounter: 05/29/17 - Assessment and plan (1) GI bleed Current Visit: Yes Status: Acute Qualifiers: GI bleed type/associated pathology: melena Qualified Code(s): K92.1 - Melena (2) CHF (congestive heart failure) Current Visit: Yes Status: Chronic Qualifiers: Heart failure type: unspecified Heart failure chronicity: unspecified Qualified Code(s): I50.9 - Heart failure, unspecified (3) Hypertension Current Visit: Yes Status: Acute Qualifiers: Hypertension type: essential hypertension Qualified Code(s): I10 - Essential (primary) hypertension (4) CAD (coronary artery disease) Current Visit: Yes Status: Acute Qualifiers: Coronary Disease-Associated Artery/Lesion type: unspecified vessel or lesion type [place] vs. transplanted heart: [place] heart Associated angina: angina presence unspecified Qualified Code(s): I25.10 - Atherosclerotic heart disease of [place] coronary artery without angina pectoris (5) Acute blood loss anemia Current Visit: Yes Status: Acute (6) Acute on chronic kidney failure Current Visit: Yes Status: Acute Qualifiers: Acute renal failure type: unspecified Chronic kidney disease stage: stage 3 (moderate) Qualified Code(s): N17.9 - Acute kidney failure, unspecified; N18.3 - Chronic kidney disease, stage 3 (moderate); N18.3 - Chronic kidney disease, stage 3 (moderate) (7) DVT prophylaxis Current Visit: Yes Status: Acute - Time Spent With Patient Total time spent is greater than 50% in coordination of care (as documented) at patient's floor/unit and/or counseling patient: - Constitutional Vitals: Temp Pulse Resp BP Pulse Ox 98.2 F 85 18 119/63 100 05/29/17 16:09 05/29/17 16:09 05/29/17 16:09 05/29/17 16:09 05/29/17 16:09 Internal Medicine: Result - Labs CBC & Chem 7: 05/29/17 12:25 05/29/17 05:37 Labs: Short CBC 05/29/17 05/29/17 Range/Units 05:37 12:25 WBC 8.0 (4.3-11.1) K/mcL Hgb 8.5 L 8.8 L (12.9-16.9) g/dL Hct 25.8 L 26.2 L (37.5-50.1) % Plt Count 199 (140-400) K/mcL Neutrophils # 5.6 (1.6-8.9) K/mcL BMP 05/29/17 05:37 Sodium 138 Potassium 4.1 Chloride 107 Carbon Dioxide 23 BUN 66 H Creatinine 1.80 H Glucose 103 Calcium 8.3 L - ABG Interpretation ABG results: PT/INR, D-dimer PT 15.9 Seconds (9.4-12.1) H 05/28/17 18:40 - Attending Attestation I examined this patient and my medical decision-making was reviewed with the Resident Physician Dr. Atkinson. I agree with the documented findings, disposition and treatment plan as described except to the extent set forth below. Mr. Boswell is an 87-year-old male with PMH of hypertension, CAD, Systolic CHF , and carotid artery stenosis pt admitted with melena since y/d. He denied any CP / SOB. Gen: A, A< O x3 Chest: Diminished BS b/l, no crackles Heart: S1S2 + RRR No murmurs ap 1. Acute blood loss anemia 2. Acute melena / GI bleed s/p EGD no acute bleed noticed cont PPI Cont close monitoring of Hb GI on board Colonoscopy in AM
[2017-05-29] MEDS: 0.9 % Sodium Chloride 1,000 ML IVC SCH (16:24)
[2017-05-30 05:51] LABS: Basophils % 0.3 %; Eosinophils # 0.7 K/mcL (0.0-0.6); Eosinophils % 12.8 %; Hematocrit 20.2 % (37.5-50.1); Hemoglobin 6.7 g/dL (12.9-16.9); Immature Granulocytes % 0.3 % (0-4); Lymphocytes # 0.8 K/mcL (0.6-4.6); Lymphocytes % 13.5 %; Mean Corpuscular HGB Conc 33.2 g/dL (31.6-35.5); Mean Corpuscular Volume 90.6 fL (83.0-100.0); Mean Platelet Volume 10.1 fL (9.4-12.4); Monocytes # 0.5 K/mcL (0.0-1.3); Monocytes % 8.5 %; Neutrophils # 3.7 K/mcL (1.6-8.9); Platelet Count 162 K/mcL (140-400); Red Blood Count 2.23 M/mcL (4.19-5.50); Red Cell Distribution Width 13.3 % (11.5-14.5); Segmented Neutrophils % 64.6 %
[2017-05-30] MEDS: Pantoprazole 40 MG VIAL IVP SCH ×2 (06:04→17:16)
[2017-05-30 06:08] LABS: Calcium 7.6 mg/dL (8.6-10.3); Potassium 4.1 mEq/L (3.5-5.1)
--- NOTE | 2017-05-30 07:19 | Anesthesia Evaluation PreOp ---
Date of Encounter: 05/30/17 - Past History Planned Operation: Colonoscopy Cardiac History: CHF, HTN, Other (PAD) Pulmonary History: COPD Other Medical History: Bleeding (Sandhya, GI bleed, Anemia) Alcohol Use: none Drug use: none Medications and Allergies Amlodipine Besylate [Amlodipine Besylate] 10 mg PO DAILY 05/28/17 [History] Clopidogrel [Plavix] 75 mg PO DAILY 05/28/17 [History] Furosemide [Lasix] 20 mg PO DAILY 05/28/17 [History] Lisinopril [Zestril] 20 mg PO DAILY 05/28/17 [History] Tamsulosin [Flomax] 0.4 mg PO DAILY 05/28/17 [History] 3 Allergy/AdvReac Type Severity Reaction Status Date / Time Penicillins AdvReac Hives Verified 05/28/17 19:59 Anesthesia Results - Labs 05/30/17 05:27 05/30/17 05:27
[2017-05-30] MEDS: Lisinopril 20 MG TABLET PO SCH (08:14)
[2017-05-30] MEDS: amLODIPine 5 MG TABLET PO SCH (08:14)
--- NOTE | 2017-05-30 08:21 | Internal Med Progress Note ---
<Keira Atkinson - Last Filed: 05/30/17 11:44> Date of Encounter: 05/30/17 Time of Encounter: 08:44 - Assessment and plan (1) Acute blood loss anemia Current Visit: Yes Status: Acute Assessment and plan: -Hemoglobin 6.7 this morning, down from 8.8 yesterday. Transfusing 2 units PRBCs. -Today's colonoscopy delayed by drop in hemoglobin -Asymptomatic on exam--no shortness of breath, lightheadedness, hemodynamically stable -No signs of active bleeding on yesterday's EGD -Follow H/H Q8H -Transfuse PRBCs for hemoglobin less than 7 (2) GI bleed Current Visit: Yes Status: Acute Assessment and plan: -Colonoscopy delayed by drop in hemoglobin -Bowel prep started last night, patient reports no blood in the resulting bowel movements -hemoglobin today of 6.7, ransfusing 2 units PRBCs today. -EGD showed one sessile gastric polyp without the stigmata of recent bleed -GI following -Continue IV Protonix 40 mg IV Q12H Qualifiers: GI bleed type/associated pathology: melena Qualified Code(s): K92.1 - Melena (3) Acute on chronic kidney failure Current Visit: Yes Status: Acute Assessment and plan: -Improved. Near patient's baseline -Serum creatinine this morning of 1.58; baseline serum creatinine approximately 1.5 -Acute kidney injury may be d/t GI bleed -Continue to follow serum creatinine, avoid nephrotoxins, and use renal dosing -Gentle IV fluid hydration Qualifiers: Acute renal failure type: unspecified Chronic kidney disease stage: stage 3 (moderate) Qualified Code(s): N17.9 - Acute kidney failure, unspecified; N18.3 - Chronic kidney disease, stage 3 (moderate); N18.3 - Chronic kidney disease, stage 3 (moderate) (4) CHF (congestive heart failure) Current Visit: Yes Status: Chronic Assessment and plan: -Last echocardiogram performed on 09/08/16 showed EF 40%, mild-moderate pulmonary HTN, mild MR and TR, mild-mod pulmonic regurgitation -Hold Lasix for now Qualifiers: Heart failure type: unspecified Heart failure chronicity: unspecified Qualified Code(s): I50.9 - Heart failure, unspecified (5) Hypertension Current Visit: Yes Status: Acute Assessment and plan: - Continue home meds lisinopril and amlodipine Qualifiers: Hypertension type: essential hypertension Qualified Code(s): I10 - Essential (primary) hypertension (6) CAD (coronary artery disease) Current Visit: Yes Status: Acute Assessment and plan: - Continue to hold Plavix for concern of GI bleed -Continue radiation monitor Qualifiers: Coronary Disease-Associated Artery/Lesion type: unspecified vessel or lesion type [place] vs. transplanted heart: [place] heart Associated angina: angina presence unspecified Qualified Code(s): I25.10 - Atherosclerotic heart disease of [place] coronary artery without angina pectoris (7) DVT prophylaxis Current Visit: Yes Status: Acute Assessment and plan: EPCDs - Time Spent With Patient Total time spent is greater than 50% in coordination of care (as documented) at patient's floor/unit and/or counseling patient: - Subjective Interval history: Patient feels well today, but says he did not sleep very well because of all the noise in the hospital. His daughter is present in the room as well. Denies any abdominal pain, nausea, vomiting, chest pain, shortness of breath. Has had several bowel movements today, began bowel prep for colonoscopy last night. Denies hematochezia and melena today. - Constitutional Vitals: Temp Pulse Resp BP Pulse Ox 97.8 F 97 18 123/63 96 05/30/17 07:37 05/30/17 07:37 05/30/17 07:37 05/30/17 07:37 05/30/17 07:37 General appearance: Present: A&O X 3, answers questions appropriately - Other Additional findings: General: Pleasant, No acute distress, resting comfortably in bed HEENT: PERRL/ EOMI, moist mucus membranes, non traumatic, normocephalic Neck: Supple, FROM Cardio: RRR, no murmurs, S1/S2 Pulm: CTAB, no wheezing, Normal respiratory effort. Abdomen: soft, nontender, BS+ Extremities: No lower extremitiy edema, nnon tender, no cyanosis Neuro: AAOx3, no focal neurological defecit, mentation intact, CN II-XII intact grossly MSK: Strength 5/5 throughout Psych: Appropriate mood and affect. Answers questions appropriately. Cooperative with exam Internal Medicine: Result - Labs CBC & Chem 7: 05/30/17 05:27 05/30/17 05:27 Labs: Short CBC 05/29/17 05/30/17 Range/Units 12:25 05:27 WBC 5.8 (4.3-11.1) K/mcL Hgb 8.8 L 6.7 L D (12.9-16.9) g/dL Hct 26.2 L 20.2 L (37.5-50.1) % Plt Count 162 (140-400) K/mcL Neutrophils # 3.7 (1.6-8.9) K/mcL BMP 05/30/17 05:27 Sodium 137 Potassium 4.1 Chloride 112 H Carbon Dioxide 20 L BUN 51 H Creatinine 1.58 H Glucose 93 Calcium 7.6 L - ABG Interpretation ABG results: PT/INR, D-dimer PT 15.9 Seconds (9.4-12.1) H 05/28/17 18:40 Consult Discharge Plan - Plan Referrals: Haresh Salmon MD [Primary Care Provider] - <Liliya Hairston - Last Filed: 05/30/17 13:41> Date of Encounter: 05/30/17 - Assessment and plan (1) GI bleed Current Visit: Yes Status: Acute Qualifiers: GI bleed type/associated pathology: melena Qualified Code(s): K92.1 - Melena (2) CHF (congestive heart failure) Current Visit: Yes Status: Chronic Qualifiers: Heart failure type: unspecified Heart failure chronicity: unspecified Qualified Code(s): I50.9 - Heart failure, unspecified (3) Hypertension Current Visit: Yes Status: Acute Qualifiers: Hypertension type: essential hypertension Qualified Code(s): I10 - Essential (primary) hypertension (4) CAD (coronary artery disease) Current Visit: Yes Status: Acute Qualifiers: Coronary Disease-Associated Artery/Lesion type: unspecified vessel or lesion type [place] vs. transplanted heart: [place] heart Associated angina: angina presence unspecified Qualified Code(s): I25.10 - Atherosclerotic heart disease of [place] coronary artery without angina pectoris (5) Acute blood loss anemia Current Visit: Yes Status: Acute (6) Acute on chronic kidney failure Current Visit: Yes Status: Acute Qualifiers: Acute renal failure type: unspecified Chronic kidney disease stage: stage 3 (moderate) Qualified Code(s): N17.9 - Acute kidney failure, unspecified; N18.3 - Chronic kidney disease, stage 3 (moderate); N18.3 - Chronic kidney disease, stage 3 (moderate) (7) DVT prophylaxis Current Visit: Yes Status: Acute - Time Spent With Patient Total time spent is greater than 50% in coordination of care (as documented) at patient's floor/unit and/or counseling patient: - Constitutional Vitals: Temp Pulse Resp BP Pulse Ox 98.3 F 78 16 112/71 98 05/30/17 12:31 05/30/17 12:31 05/30/17 12:31 05/30/17 12:31 05/30/17 12:02 Internal Medicine: Result - Labs CBC & Chem 7: 05/30/17 05:27 05/30/17 05:27 Labs: Short CBC 05/30/17 Range/Units 05:27 WBC 5.8 (4.3-11.1) K/mcL Hgb 6.7 L D (12.9-16.9) g/dL Hct 20.2 L (37.5-50.1) % Plt Count 162 (140-400) K/mcL Neutrophils # 3.7 (1.6-8.9) K/mcL BMP 05/30/17 05:27 Sodium 137 Potassium 4.1 Chloride 112 H Carbon Dioxide 20 L BUN 51 H Creatinine 1.58 H Glucose 93 Calcium 7.6 L - ABG Interpretation ABG results: PT/INR, D-dimer PT 15.9 Seconds (9.4-12.1) H 05/28/17 18:40 - Attending Attestation I examined this patient and my medical decision-making was reviewed with the Resident Physician Dr. Atkinson. I agree with the documented findings, disposition and treatment plan as described except to the extent set forth below. Mr. Boswell is an 87-year-old male with PMH of hypertension, CAD, Systolic CHF , and carotid artery stenosis pt admitted with melena for 2 days. He denied any CP / SOB. He does not have any more dark colored stools. Gen: A, A, O x3 Chest: Diminished BS b/l, no crackles Heart: S1S2 + RRR No murmurs A/P 1. Acute blood loss anemia 2. Acute melena / GI bleed s/p EGD no acute bleed noticed cont PPI Cont close monitoring of Hb Hb dropped down to 6.7 today will transfuse PRBC x 2 U GI on board Colonoscopy - Pending by GI
[2017-05-30] MEDS ORDERED: 0.9 % Sodium Chloride 250 ML ONE (09:04)
--- NOTE | 2017-05-30 11:49 | Gastroenterology Progress Note ---
Date of Encounter: 05/30/17 Time of Encounter: 08:00 - Time Spent With Patient Total time spent is greater than 50% in coordination of care (as documented) at patient's floor/unit and/or counseling patient: - Subjective Interval history: Pt slept well last night. Daughter and son present in room. He has no complaints today. 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 Denies any bowel movements today. Reports he has shortness of breath at baseline , no change. Patient's regimen and follow had dropped down to 6.7 g percent this morning from the patient. Patient will need to be transfused prior to the endoscopy will give him 2 units of packed cells at clearly explained this to him and his ago and his daughter Amy at the bedside about rescheduling his colonoscopy for tomorrow morning at 8 AM with monitored with monitored anesthesia care He has been on long-term Plavix - Constitutional Vitals: Temp Pulse Resp BP Pulse Ox 97.6 F 86 16 115/78 98 05/30/17 09:54 05/30/17 09:54 05/30/17 09:54 05/30/17 09:54 05/30/17 09:54 General appearance: Present: cooperative, A&O X 3, no acute distress, answers questions appropriately - GI/Abdominal GI/Abdominal exam: Present: normal bowel sounds, soft, no peritoneal signs Results - Labs CBC & Chem 7: 05/30/17 05:27 05/30/17 05:27 Labs: Last Result Calcium 7.6 mg/dL (8.6-10.3) L 05/30/17 05:27 Iron 53 mcg/dL (65-175) L 05/29/17 12:25 % Saturation 19 % (20-55) L 05/29/17 12:25 Transferrin 199 mg/dL (203-362) L 05/29/17 12:25 Troponin I < 0.03 ng/mL (< 0.04) 05/28/17 18:43 Vitamin B12 156 pg/mL (250-1100) L 05/29/17 12:25 Folate 7.4 ng/mL (3.0-16.0) 05/29/17 12:25 Entire Visit Hgb 6.7 g/dL (12.9-16.9) L D 05/30/17 05:27 Hct 20.2 % (37.5-50.1) L 05/30/17 05:27 PT 15.9 Seconds (9.4-12.1) H 05/28/17 18:40 Folate 7.4 ng/mL (3.0-16.0) 05/29/17 12:25 - ABG ABG results: PT/INR, D-dimer PT 15.9 Seconds (9.4-12.1) H 05/28/17 18:40 Consult Discharge Plan - Plan Referrals: Haresh Salmon MD [Primary Care Provider] -
[2017-05-30 16:37] LABS: Hematocrit 26.1 % (37.5-50.1)
[2017-05-30 16:39] LABS: Hemoglobin 8.9 g/dL (12.9-16.9)
[2017-05-30] MEDS: 0.9 % Sodium Chloride 1,000 ML IVC SCH ×2 (20:53→21:00)
[2017-05-30 21:28] LABS: Hematocrit 26.9 % (37.5-50.1); Hemoglobin 9.2 g/dL (12.9-16.9)
[2017-05-31] MEDS: Pantoprazole 40 MG VIAL IVP SCH (05:38)
[2017-05-31 05:57] LABS: Hematocrit 27.5 % (37.5-50.1); Hemoglobin 9.1 g/dL (12.9-16.9); Mean Corpuscular HGB Conc 33.1 g/dL (31.6-35.5); Mean Corpuscular Hemoglobin 29.8 pg (28.0-33.3); Mean Corpuscular Volume 90.2 fL (83.0-100.0); Mean Platelet Volume 9.9 fL (9.4-12.4); Platelet Count 187 K/mcL (140-400); Red Blood Count 3.05 M/mcL (4.19-5.50); Red Cell Distribution Width 13.9 % (11.5-14.5)
[2017-05-31 06:16] LABS: Calcium 8.2 mg/dL (8.6-10.3); Potassium 4.1 mEq/L (3.5-5.1)
--- NOTE | 2017-05-31 07:15 | Anesthesia Evaluation PreOp ---
Date of Encounter: 05/31/17 Time of Encounter: 07:12 - Past History Planned Operation: Colonoscopy Cardiac History: CHF, HTN (maintained on Norvasc, Lasix, Zestril), Other (CAD maintained on Plavix. 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 S/p transfusion 2u pRBCs on 05/30/2017), Other (BPH maintained on Flomax) Anesthesia History: Past Anesthesia Alcohol Use: none Drug use: none Medications and Allergies Amlodipine Besylate [Amlodipine Besylate] 10 mg PO DAILY 05/28/17 [History] Clopidogrel [Plavix] 75 mg PO DAILY 05/28/17 [History] Furosemide [Lasix] 20 mg PO DAILY 05/28/17 [History] Lisinopril [Zestril] 20 mg PO DAILY 05/28/17 [History] Tamsulosin [Flomax] 0.4 mg PO DAILY 05/28/17 [History] 3 Allergy/AdvReac Type Severity Reaction Status Date / Time Penicillins AdvReac Hives Verified 05/28/17 19:59 - Meds/Allergy Pre-op Review Medications Reviewed: Yes Allergies Reviewed: Yes Beta Blockers on Current Med List: No Anesthesia Results - Labs 05/31/17 05:48 05/31/17 05:48 Laboratory Results WBC 6.7 K/mcL (4.3-11.1) 05/31/17 05:48 RBC 3.05 M/mcL (4.19-5.50) L 05/31/17 05:48 Hgb 9.1 g/dL (12.9-16.9) L 05/31/17 05:48 Hct 27.5 % (37.5-50.1) L 05/31/17 05:48 MCV 90.2 fL (83.0-100.0) 05/31/17 05:48 MCH 29.8 pg (28.0-33.3) 05/31/17 05:48 MCHC 33.1 g/dL (31.6-35.5) 05/31/17 05:48 RDW 13.9 % (11.5-14.5) 05/31/17 05:48 Plt Count 187 K/mcL (140-400) 05/31/17 05:48 MPV 9.9 fL (9.4-12.4) 05/31/17 05:48 Immature Gran % 0.3 % (0-4) 05/30/17 05:27 Seg Neutrophils % 64.6 % 05/30/17 05:27 Lymphocytes % 13.5 % 05/30/17 05:27 Monocytes % 8.5 % 05/30/17 05:27 Eosinophils % 12.8 % 05/30/17 05:27 Basophils % 0.3 % 05/30/17 05:27 Neutrophils # 3.7 K/mcL (1.6-8.9) 05/30/17 05:27 Lymphocytes # 0.8 K/mcL (0.6-4.6) 05/30/17 05:27 Monocytes # 0.5 K/mcL (0.0-1.3) 05/30/17 05:27 Eosinophils # 0.7 K/mcL (0.0-0.6) H 05/30/17 05:27 Basophils # 0.0 K/mcL (0.0-0.2) 05/30/17 05:27 PT 15.9 Seconds (9.4-12.1) H 05/28/17 18:40 INR 1.5 05/28/17 18:40 APTT 26.8 Seconds (26.0-36.0) 05/28/17 18:40 Sodium 135 mEq/L (136-145) L 05/31/17 05:48 Potassium 4.1 mEq/L (3.5-5.1) 05/31/17 05:48 Chloride 109 mEq/L (98-107) H 05/31/17 05:48 Carbon Dioxide 22 mEq/L (23-29) L 05/31/17 05:48 BUN 37 mg/dL (8-23) H 05/31/17 05:48 Creatinine 1.59 mg/dL (0.70-1.30) H 05/31/17 05:48 Est GFR ( Amer) 50 (> 60) L 05/31/17 05:48 Est GFR (Non-Af Amer) 41 (> 60) L 05/31/17 05:48 BUN/Creatinine Ratio 23 (6-26) 05/31/17 05:48 Glucose 103 mg/dL (70-105) 05/31/17 05:48 POC Glucose 104 mg/dL (70-99) H 05/30/17 05:31 Calculated Osmolality 289 (280-300) 05/31/17 05:48 Calcium 8.2 mg/dL (8.6-10.3) L 05/31/17 05:48 Iron 53 mcg/dL (65-175) L 05/29/17 12:25 % Saturation 19 % (20-55) L 05/29/17 12:25 Transferrin 199 mg/dL (203-362) L 05/29/17 12:25 Troponin I < 0.03 ng/mL (< 0.04) 05/28/17 18:43 Vitamin B12 156 pg/mL (250-1100) L 05/29/17 12:25 Folate 7.4 ng/mL (3.0-16.0) 05/29/17 12:25 Blood Type O POSITIVE 05/28/17 18:40 Antibody Screen POSITIVE 05/28/17 18:40 Antibody Identification Anti-K 05/28/17 18:40 Crossmatch See Detail 05/28/17 18:40 MTS Gel Crossmatch See Detail 05/28/17 18:40 - Imaging Additional studies: ECHO 09/08/2016 Impressions: LVEF 40-45%. Mild LV systolic dysfunction with regional variations (see Diagram below). Mild left ventricular diastolic dysfunction. Normal right ventricular structure and function. Mild mitral regurgitation. Mild tricuspid regurgitation. Mild-moderate pulmonic regurgitation. Mild-moderate pulmonary hypertension. Left Ventricular Wall Motion: Rest Echo Findings The mid inferior, basal inferior and mid inferior lateral hall were hypokinetic. The basal inferior lateral wall was akinetic. All other wall segments showed normal motion. Findings: Study Quality * Technically adequate exam. ECG Findings * Normal sinus rhythm. Left Ventricle * Basal sigmoid septum. * Mild left ventricular diastolic dysfunction. * LVEF 40-45%. Aorta * Normally sized aortic root. Aortic Valve * No aortic regurgitation. * Mild to moderately calcified aortic valve leaflets. * Trileaflet aortic valve. * No aortic stenosis. Tricuspid Valve * Mild tricuspid regurgitation. * Normal tricuspid valve structure. * Estimated RA pressure is 3 mmHg. * Estimated RVSP is 47 mmHg. * Mild to moderate pulmonary hypertension. Pulmonic Valve * Pulmonic valve is not well visualized. * No pulmonic stenosis. * Mild-moderate pulmonic regurgitation. Pulmonary Artery * Pulmonary artery not well visualized. Mitral Valve * Mild mitral regurgitation. Left Atrium * Severely dilated left atrium. Right Atrium * Normal right atrial size. Right Ventricle * Normal right ventricular structure and function. Pericardium * There is no pericardial effusion present. Interatrial Septum * No evidence of PFO by color Doppler. IVC * Normal IVC dimensions and inspiratory collapse. Anesthesia Exam Vital Signs Temp Pulse Resp BP Pulse Ox 05/31/17 04:52 97.7 F 87 16 108/64 94 05/31/17 01:09 97.6 F 78 17 123/71 94 05/30/17 20:38 98.2 F 79 16 119/67 97 05/30/17 14:24 97.0 F L 82 16 118/71 98 05/30/17 12:31 98.3 F 78 16 112/71 05/30/17 12:16 97.9 F 80 16 115/73 05/30/17 12:02 97.9 F 79 16 115/72 98 05/30/17 09:54 97.6 F 86 16 115/78 98 05/30/17 09:53 97 05/30/17 09:20 96.8 F L 84 16 125/70 97 05/30/17 07:37 97.8 F 97 18 123/63 96 Intake and Output 05/30/17 05/30/17 05/31/17 15:59 23:59 07:59 Intake Total 840 / 840 980 / 980 Output Total 300 / 300 Balance 840 / 840 980 / 980 -300 / -300 Intake: IV Fluids 200 / 200 500 / 500 0.9 % Sodium Chloride 250 ML @ 200 / 200 0 mls/hr .ROUTE .STK-MED ONE Rx #:[id number] 0.9 % Sodium Chloride 1,000 ML 0 / 0 500 / 500 @ 75 mls/hr IVC .[id number] [facility] Rx #:[id number] Oral 480 / 480 Blood Product 640 / 640 Rbcs Leuko Poor As-3 2nd Unit 320 / 320 [id number] Rbcs Leuko Poor As-3 Ph Unit 320 / 320 [id number] Output: Urine 300 / 300 Other: Weight 93.8 kg Patient Weight 05/31/17 23:59 Weight 93.8 kg - HEENT Pupil (Motor): Pupils equal, EOMI Mallampati: II Teeth: Normal, Edentulous (upper) Oral Opening: Greater than 3 - HAMMERER HELPER LOC: Oriented HAMMERER HELPER Motor: Normal RUE, Normal LUE, Normal RLE, Normal LLE, Normal Face HAMMERER HELPER Sensory: Normal: RUE, LUE, RLE, LLE, Face - Cardiac Rhythm: Regular Murmur: None - Pulmonary Breath Sounds: bilateral Clear Respiratory Effort: Symmetrical Anesthesia Assess/Plan ASA Score: 3 (GIB, Acute on Chronic stage 3 CKD, COPD, HTN,) Modified Ola Scale for Level of Consciousness: Cooperative, oriented, and tranquil Anesthetic Plan: MAC Monitoring Plan: Standard Monitors Recovery Plan: PACU Anes Supervising Prov Stmt: Pt seen/evaluated, R&B discussed, questions answered and consent obtained. Belia Velasquez MD
[2017-05-31] MEDS ORDERED: Lidocaine -MPF 2% 2 ML VIAL ONE (07:33)
[2017-05-31] MEDS ORDERED: Propofol 500 MG/50 ML INFUS..BTL ONE (07:34)
[2017-05-31] MEDS: amLODIPine 5 MG TABLET PO SCH (09:07)
[2017-05-31] MEDS: Furosemide 20 MG TABLET PO SCH (09:08)
[2017-05-31] MEDS: Lisinopril 20 MG TABLET PO SCH (09:08)
[2017-05-31 09:37] VITALS: BP 151/54
--- NOTE | 2017-05-31 10:03 | Anesthesia Evaluation Post Op ---
Date of Encounter: 05/31/17 Time of Encounter: 08:52 - Vital Signs Vital Signs: Vital Signs/O2 Sat/Glucose, Most Current Temp Pulse Resp BP Pulse Ox 05/31/17 09:30 97.4 F L 82 16 151/54 98 05/31/17 09:00 96.9 F L 76 16 124/58 94 05/31/17 07:51 85 18 127/84 95 - Airway Airway: Non-obstructed - Cardiovascular Regular Rate - Mental Status Mental Status: Alert & Oriented, Answers Appropriately - Pain Pain Scale: 0 Pain Scale used: Numeric (1 - 10) - Nausea Vomiting Nausea Vomiting: Not Present - Hydration Hydration: NPO, Has not voided - Discharge PostOp Status: Transfer Patient to floor Anes Supervising Prov Stmt: Pt seen/evaluated, VSS And pt has met criteria for discharge to home. - MD Eva
--- NOTE | 2017-05-31 10:22 | Discharge Summary ---
<Keira Atkinson - Last Filed: 05/31/17 16:50> Date of Encounter: 05/31/17 Time of Encounter: 10:17 - Discharge Diagnosis (1) GI bleed Priority: Primary Status: Acute Qualifiers: GI bleed type/associated pathology: melena Qualified Code(s): K92.1 - Melena (2) Acute blood loss anemia Priority: Secondary Status: Acute (3) Acute on chronic kidney failure Priority: Secondary Status: Resolved Qualifiers: Acute renal failure type: unspecified Chronic kidney disease stage: stage 3 (moderate) Qualified Code(s): N17.9 - Acute kidney failure, unspecified; N18.3 - Chronic kidney disease, stage 3 (moderate); N18.3 - Chronic kidney disease, stage 3 (moderate) (4) CHF (congestive heart failure) Priority: Secondary Status: Chronic Qualifiers: Heart failure type: unspecified Heart failure chronicity: unspecified Qualified Code(s): I50.9 - Heart failure, unspecified (5) Hypertension Priority: Secondary Status: Acute Qualifiers: Hypertension type: essential hypertension Qualified Code(s): I10 - Essential (primary) hypertension (6) CAD (coronary artery disease) Priority: Secondary Status: Acute Qualifiers: Coronary Disease-Associated Artery/Lesion type: unspecified vessel or lesion type [place] vs. transplanted heart: [place] heart Associated angina: angina presence unspecified Qualified Code(s): I25.10 - Atherosclerotic heart disease of [place] coronary artery without angina pectoris (7) DVT prophylaxis Priority: Secondary Status: Acute Hospital course: Mr. Boswell is a 87 year old male with chief complaint of melanotic stool. Prior to his arrival at [place], he went to an urgent care facility where lab work showed hemoglobin 10.7, BUN 60, creatinine 2.8, and positive for Hemoccult blood. Transferred to [facility] emergency department. On arrival his vital signs were pulse 96, BP 135/88, RR 18, O2 saturation 100%. Hemoglobin 9.8 when rechecked in ED. Patient was started on IV Protonix and his Plavix was held. GI was consulted and performed an EGD which showed a hiatal hernia, benign-appearing esophageal stenosis, mild post-ulcer deformity of duodenum, and a single 12 mm sessile polyp on lesser curvature of the gastric antrum without signs of recent bleeding. Additional lab work for anemia revealed low vitamin B12. Further drop of hemoglobin to 6.7 delayed colonoscopy, 2 units PRBCs were transfused and colonoscopy was rescheduled for the next morning. Transfusions tolerated well. Following transfusions his hemoglobin was stable overnight and into the morning of his colonoscopy ( hemoglobin was 9.1). 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 On the day of discharge the patient's creatinine was 1.59 and back within his baseline. On day of discharge he was afebrile, HR 82, BP 151/54, RR 16, and oxygen saturation 98% on room air. Patient felt ready to go home and he was deemed medically stable. He was discharged to home with GI recommendations for outpatient follow-up and video capsule endoscopy. Patient is to see his PCP within 7-10 days after discharge and continue to hold his Plavix until seen by PCP. Discharge discussed with: patient, family - Time Spent with Patient Total time spent providing and/or coordinating discharge services: - Discharge Medications Prescriptions: Cyanocobalamin (B-12) [Vitamin B12] 1,000 mcg PO DAILY #30 tablet Pantoprazole Sodium [Protonix] 40 mg PO DAILY #30 tablet. [place] Medications: Amlodipine Besylate 10 mg PO DAILY 05/28/17 [History] Furosemide [Lasix] 20 mg PO DAILY 05/28/17 [History] Lisinopril [Zestril] 20 mg PO DAILY 05/28/17 [History] Tamsulosin [Flomax] 0.4 mg PO DAILY 05/28/17 [History] Cyanocobalamin (B-12) [Vitamin B12] 1,000 mcg PO DAILY #30 tablet 05/31/17 [Rx] Pantoprazole Sodium [Protonix] 40 mg PO DAILY #30 tablet. 05/31/17 [Rx] Allergies/Adverse Reactions: 3 Allergy/AdvReac Type Severity Reaction Status Date / Time Penicillins AdvReac Hives Verified 05/28/17 19:59 Date of admission: 05/28/17 23:01 Primary care physician: Haresh Salmon MD Consults: 05/29/17 08:47 Consult to Gastroenterology [CONS] Routine Consulting Provider: Gastroenterology Eugenia Reason for Consult: blood in stool Call Completed: Yes Discharging clinician: Keira Atkinson Anticipated date of discharge: 05/31/17 - Constitutional Vitals: Temp Pulse Resp BP Pulse Ox 97.4 F L 82 16 151/54 98 05/31/17 09:30 05/31/17 09:30 05/31/17 09:30 05/31/17 09:30 05/31/17 09:30 General appearance: Present: A&O X 3, answers questions appropriately - Other Additional findings: General: AAOx3, No acute distress, resting comfortably in bed HEENT: head normocephalic/atraumatic, EOMI, PERRL, sclera anicteric, moist mucus membranes, Neck: Supple Cardio: RRR, no murmurs, +S1/S2 Pulm: CTAB, no wheezing, Normal respiratory effort. Abdomen: soft, nontender, BS+, nondistended Extremities: No LE edema, no calf tenderness, no cyanosis Back: normal appearance on inspection Neuro: AAOx3, no focal deficit, no speech deficit, mentation intact, normal gait , CN II-XII grossly intact, moves extremities spontaneously MSK: no visible deformities Skin: clean, dry, intact, no visible rashes Psych: Appropriate mood and affect. Answers questions appropriately. Cooperative with exam - Patient Status Disposition: Home, Self-Care Condition: Good Overall status at discharge: patient is progressing back to baseline - Discharge Instructions Follow Up With: Haresh Salmon MD [Primary Care Provider] - Ian Benson MD [Partnered Physician] - Forms: ED Satisfaction Letter Additional Instructions: Follow up with your PCP in 7-10 days after your discharge Follow up with [facility] as an outpatient Take all your medications as prescribed If you develop fevers, chills, abdominal pain, nausea/vomiting, chest pain, difficulty breathing, shortness of breath, or your symptoms worsen, contact your PCP or visit the ED - Diet and Activity Activity: resume usual activities as tolerated Diet: advance to your usual diet, low salt diet <Liliya Hairston - Last Filed: 06/01/17 07:26> Date of Encounter: 05/31/17 - Discharge Diagnosis (1) GI bleed Status: Acute Qualifiers: GI bleed type/associated pathology: melena Qualified Code(s): K92.1 - Melena (2) CHF (congestive heart failure) Status: Chronic Qualifiers: Heart failure type: unspecified Heart failure chronicity: unspecified Qualified Code(s): I50.9 - Heart failure, unspecified (3) Hypertension Status: Acute Qualifiers: Hypertension type: essential hypertension Qualified Code(s): I10 - Essential (primary) hypertension (4) CAD (coronary artery disease) Status: Acute Qualifiers: Coronary Disease-Associated Artery/Lesion type: unspecified vessel or lesion type [place] vs. transplanted heart: [place] heart Associated angina: angina presence unspecified Qualified Code(s): I25.10 - Atherosclerotic heart disease of [place] coronary artery without angina pectoris (5) Acute blood loss anemia Status: Acute (6) Acute on chronic kidney failure Status: Resolved Qualifiers: Acute renal failure type: unspecified Chronic kidney disease stage: stage 3 (moderate) Qualified Code(s): N17.9 - Acute kidney failure, unspecified; N18.3 - Chronic kidney disease, stage 3 (moderate); N18.3 - Chronic kidney disease, stage 3 (moderate) (7) DVT prophylaxis Status: Acute Hospital course: Mr. Boswell is a 87 year old male - Time Spent with Patient Total time spent providing and/or coordinating discharge services: Date of admission: 05/28/17 23:01 Primary care physician: Haresh Salmon MD Consults: 05/29/17 08:47 Consult to Gastroenterology [CONS] Routine Consulting Provider: Gastroenterology Eugenia Reason for Consult: blood in stool Call Completed: Yes - Constitutional Vitals: Temp Pulse Resp BP Pulse Ox 97.4 F L 82 16 151/54 98 05/31/17 09:30 05/31/17 09:30 05/31/17 09:30 05/31/17 09:30 05/31/17 09:30 - Attending Attestation I examined this patient and my medical decision-making was reviewed with the Resident Physician Dr. Atkinson. I agree with the documented findings, disposition and treatment plan as described except to the extent set forth below. Mr. Boswell is an 87-year-old male with PMH of hypertension, CAD, Systolic CHF , and carotid artery stenosis pt admitted with melena for 2 days. He denied any CP / SOB. He does not have any more dark colored stools. Gen: A, A, O x3 Chest: Diminished BS b/l, no crackles Heart: S1S2 + RRR No murmurs A/P 1. Acute blood loss anemia 2. Acute melena / GI bleed s/p EGD no acute bleed noticed cont PPI s/p PRBC x 2 U s/p Colonoscopy -no active bleeding noticed recommend to hold Plavix for one more week d/c home today
== END 2017-05-31 11:20 | disposition home or self-care (01) | DRG 378 ==
LOC: EMEROO 18:18 → 3ANU 18:18
PROVIDERS: ADMIT Internal Medicine Cardiovascular Disease; ATTEND Internal Medicine Cardiovascular Disease